=== PATIENT | female | born 1930 | race Caucasian/White ===

== ENCOUNTER 2018-03-14 11:22 | Inpatient (IN) | payer MEDICARE ==
[~2018-03-14] VITALS: Ht 165.1 cm; Wt 92.5 kg
--- NOTE | ~2018-03-14 | MORECARE ---
CASE MANAGEMENT DISCHARGE SUMMARY PATIENT: RORY JEFFERSON UNIT: [id number] ADM DATE: 03/15/18 AGE: 87 : [birth year] SEX: F ROOM/BED: D.2127 AUTHOR: GUILLERMINA,DOC PHYSICIAN: REFERRING PHYSICIAN: LORI CALDERON MD DATE OF SERVICE: 03/21/18 Discharge Plan Patient Name: RORY JEFFERSON Facility: [facility]:[place] : 1930 Planned Disposition: Half-Way Facility Anticipated Discharge Date: 03/21/18 Discharge Date: Expected LOS: 6 Initial Reviewer: [id number] Initial Review Date: 03/14/2018 Generated: 03/21/18 4:21 pm Comments DCP- Discharge Planning Updated by [id number]: Reji Neri on 03/20/18 4:[address] Patient Name: RORY JEFFERSON Encounter No: [id number] : 1930 Primary Insurance: MEDICARE A & B Anticipated DC Date: 03-21-2018 Planned Disposition: [facility] F[facility] External Planned Provider: [facility], MEDICARE REHAB BED DCP follow-up note: CM SPOKE TO KEMI OF INPATIENT REHAB 03-19-18, WHO INFORMED CM THAT PT IS TOO LOW FUNCTIONING FOR INPATIENT REHAB. ON 03-20-18, CM SPOKE TO PT IN ROOM REGARDING DISCHARGE PLANNING, INPATIENT DENIAL AND [facility] AVAILAILITY. PT WANTED TO THINK ABOUT IT AND NOTIFY CM LATER TODAY AFTER SPEAKING TO HER DAUGHTER. IMPORTANT MESSAGE FROM MEDICARE PROVIDED AND EXPLAINED. PT'S DAUGHTER ARRIVED AFTER LUNCH AND DISCUSSED REHAB WITH PT. PT SELECTED [facility] FOR REHAB, CHOICE SIGNED. CM FAXED REFERRAL TO [facility], . CM WAITING ADMISSION DETERMINATION FROM [facility] FOR REHAB SERVICES. JESS CARRASQUILLO DCP- Discharge Planning Updated by [id number]: Reji Neri on 03/15/18 2:[address] Patient Name: RORY JEFFERSON Admission Status: ER Accout number: [id number] Admission Date: 03-15-2018 : 1930 Admission Diagnosis: Attending: LORI BYRD Current LOS: 1 Anticipated DC Date: 03-16-2018 Planned Disposition: Inpatient Rehab Primary Insurance: MEDICARE A & B PLANNED EXTERNAL PROVIDER: [facility] INPATIENT REH[facility] Discharge Planning Comments: CM RECEIVED REHAB PRESCREENING ORDER. CM MET WITH PT AND DAUGHTER IN ROOM TO DISCUSS DISCHARGE PLANNING AND NEEDS.RORY JEFFERSON provided verbal consent to discuss current and ongoing needs with/in the presence of: NAYELY WYLIE. PT REPORTS LIVING AT HOME DEPENDENTLY WITH ADULT DAUGHTER. WHO ASSISTS WITH BATH AND MEDICATIONS. PT HAS STANDARD WALKER AND LIFT CHAIR WITH NO MEDICAL EQUIPMENT. PT HAS NO OUTSIDE SERVICES ASSISTING IN THE HOME. CM DISCUSSED AVAILABILITY OF HOME HEALTH, REHAB SERVICES AND MEDICAL EQUIPMENT WELL REHAB PROVIDERS, LOCATIONS AND EXPECTATIONS OF REHAB. PT WOULD LIKE TO BE CONSIDERED FOR INPATIENT REHAB AT [place]. CM DISCUSSED PT NOT HAVING THREE MIDNIGHTS ADMIT IN HOSPITAL IN LAST 30 DAYS AND IF DECLINED BY INPATIENT REHAB, PT'S INSURANCE WOULD COVER ONLY HOME HEALTH WITH PHYSICAL THERAPY AT HOME. PT'S DAUGHTER REPORTS UNDERSTANDING. PT'S DAUGHTER REPORTS SHE WILL PICK PT UP FOR DISCHARGE HOME. CM WAITING INPATIENT REHAB PRESCREENING AND ADMISSION DETERMINATION FROM [facility] INPATIENT REH[facility]. Stress Engineer: Reji Neri DCP- Discharge Planning Updated by [id number]: Vivian Ferguson on 03/14/18 1:[address] CM contacted [facility] for evaluation (for rehab) @[phone]. Contacted Kemi Taylor RN [facility], to notify of same (possible Rehab). DCPIA - Discharge Planning Initial Assessment Updated by [id number]: Reji Neri on 03/15/18 3:25 pm * Is the patient Alert and Oriented? Yes * How many steps to enter\exit or inside your home? * PCP DR. HEBERT * [facility] [address] * Preadmission Environment Home with Family * ADLs Partial Dependent * Partial ADLs (Assistance needed) Bathing Medication Management * Equipment Other Walker * Other Equipment LIFT CHAIR NO MEDICAL EQUIPMENT PROVIDER PREFERENCE * List name and contact numbers for known caregivers / representatives who currently or will assist patient after discharge: GAYLE GARDUNO DTR, * Verbal permission to speak to the caregivers and representatives has been obtained from the patient. Yes * Community resources currently utilized None * Please name any agencies selected above. NONE * Additional services required to return to the preadmission environment? Yes * Can the patient safely return to the preadmission environment? Yes * Has this patient been hospitalized within the prior 30 days at any hospital? No Coverage Notice Reviewer: [id number] Neri Notice Issued Date-Time: 03/20/2018 9:40 Notice Type: IM Discharge Notice Notice Delivered To: Patient Relationship to Patient: Checking Department Supervisor Name: Delivery Method: HAND - Hand Delivered Beronica Days: Prior Verbal Notification: Recipient Understood Notice: Yes Recipient Signature: Yes Med Rec Note Co-signed by Attending: Coverage Notice Comment: Reviewer: [id number] Jenelle Neri Notice Issued Date-Time: 03/20/2018 12:55 Notice Type: Patient Choice Letter Notice Delivered To: Patient Relationship to Patient: Checking Department Supervisor Name: Delivery Method: HAND - Hand Delivered Beronica Days: Prior Verbal Notification: Recipient Understood Notice: Yes Recipient Signature: Yes Med Rec Note Co-signed by Attending: Coverage Notice Comment: [facility] Last DP export: 03/20/18 5:00 Patient Name: RORY JEFFERSON Page [id number] at 1521 All edits/amendments must be made on the electronic document DICTATION DATE: 03/21/181519 MANUFACTURING TECHNOLOGY ANALYST: SANDRA 03/21/181519 RPT#: [id number] DC DATE: STATUS: ADM IN [facility] [address] [place] [address] END OF REPORT
--- NOTE | ~2018-03-14 | MORECARE ---
CASE MANAGEMENT DISCHARGE SUMMARY PATIENT: RORY JEFFERSON UNIT: [id number] ADM DATE: 03/15/18 AGE: 87 : [birth year] SEX: F ROOM/BED: D.2127 AUTHOR: GUILLERMINA,DOC PHYSICIAN: REFERRING PHYSICIAN: LORI CALDERON MD DATE OF SERVICE: 03/20/18 Discharge Plan Patient Name: RORY JEFFERSON Facility: [facility]:[place] : 1930 Planned Disposition: Inpatient Rehab Anticipated Discharge Date: 03/16/18 Discharge Date: Expected LOS: 1 Initial Reviewer: [id number] Initial Review Date: 03/14/2018 Generated: 03/20/18 6:35 pm Comments DCP- Discharge Planning Updated by [id number]: Reji Neri on 03/20/18 4:[address] Patient Name: RORY JEFFERSON Encounter No: [id number] : 1930 Primary Insurance: MEDICARE A & B Anticipated DC Date: 03-21-2018 Planned Disposition: [facility] FACILITY External Planned Provider: [facility], MEDICARE REHAB BED DCP follow-up note: CM SPOKE TO KEMI OF INPATIENT REHAB 03-19-18, WHO INFORMED CM THAT PT IS TOO LOW FUNCTIONING FOR INPATIENT REHAB. ON 03-20-18, CM SPOKE TO PT IN ROOM REGARDING DISCHARGE PLANNING, INPATIENT DENIAL AND [facility] AVAILAILITY. PT WANTED TO THINK ABOUT IT AND NOTIFY CM LATER TODAY AFTER SPEAKING TO HER DAUGHTER. IMPORTANT MESSAGE FROM MEDICARE PROVIDED AND EXPLAINED. PT'S DAUGHTER ARRIVED AFTER LUNCH AND DISCUSSED REHAB WITH PT. PT SELECTED [facility] FOR REHAB, CHOICE SIGNED. CM FAXED REFERRAL TO [facility], . CM WAITING ADMISSION DETERMINATION FROM [facility] FOR REHAB SERVICES. JESS CARRASQUILLO DCP- Discharge Planning Updated by [id number]: Reji Neri on 03/15/18 2:[address] Patient Name: RORY JEFFERSON Admission Status: ER Accout number: [id number] Admission Date: 03-15-2018 : 1930 Admission Diagnosis: Attending: LORI BYRD Current LOS: 1 Anticipated DC Date: 03-16-2018 Planned Disposition: Inpatient Rehab Primary Insurance: MEDICARE A & B PLANNED EXTERNAL PROVIDER: [facility] INPATIENT REH[facility] Discharge Planning Comments: CM RECEIVED REHAB PRESCREENING ORDER. CM MET WITH PT AND DAUGHTER IN ROOM TO DISCUSS DISCHARGE PLANNING AND NEEDS.RORY JEFFERSON provided verbal consent to discuss current and ongoing needs with/in the presence of: NAYELY WYLIE. PT REPORTS LIVING AT HOME DEPENDENTLY WITH ADULT DAUGHTER. WHO ASSISTS WITH BATH AND MEDICATIONS. PT HAS STANDARD WALKER AND LIFT CHAIR WITH NO MEDICAL EQUIPMENT. PT HAS NO OUTSIDE SERVICES ASSISTING IN THE HOME. CM DISCUSSED AVAILABILITY OF HOME HEALTH, REHAB SERVICES AND MEDICAL EQUIPMENT WELL REHAB PROVIDERS, LOCATIONS AND EXPECTATIONS OF REHAB. PT WOULD LIKE TO BE CONSIDERED FOR INPATIENT REHAB AT [place]. CM DISCUSSED PT NOT HAVING THREE MIDNIGHTS ADMIT IN HOSPITAL IN LAST 30 DAYS AND IF DECLINED BY INPATIENT REHAB, PT'S INSURANCE WOULD COVER ONLY HOME HEALTH WITH PHYSICAL THERAPY AT HOME. PT'S DAUGHTER REPORTS UNDERSTANDING. PT'S DAUGHTER REPORTS SHE WILL PICK PT UP FOR DISCHARGE HOME. CM WAITING INPATIENT REHAB PRESCREENING AND ADMISSION DETERMINATION FROM [facility]. Priming Powder Premix Blender: Reji Neri DCP- Discharge Planning Updated by [id number]: Vivian Ferguson on 03/14/18 1:[address] CM contacted [facility] for evaluation (for rehab) @[phone]. Contacted Kemi Taylor RN [facility] Rehab, to notify of same (possible Rehab). DCPIA - Discharge Planning Initial Assessment Updated by [id number]: Reji Neri on 03/15/18 3:25 pm * Is the patient Alert and Oriented? Yes * How many steps to enter\exit or inside your home? * PCP DR. HEBERT * [facility] [address] * Preadmission Environment Home with Family * ADLs Partial Dependent * Partial ADLs (Assistance needed) Bathing Medication Management * Equipment Other Walker * Other Equipment LIFT CHAIR NO MEDICAL EQUIPMENT PROVIDER PREFERENCE * List name and contact numbers for known caregivers / representatives who currently or will assist patient after discharge: GAYLE GARDUNO DTR, * Verbal permission to speak to the caregivers and representatives has been obtained from the patient. Yes * Community resources currently utilized None * Please name any agencies selected above. NONE * Additional services required to return to the preadmission environment? Yes * Can the patient safely return to the preadmission environment? Yes * Has this patient been hospitalized within the prior 30 days at any hospital? No Coverage Notice Reviewer: [id number] Neri Notice Issued Date-Time: 03/20/2018 9:40 Notice Type: IM Discharge Notice Notice Delivered To: Patient Relationship to Patient: Plaster Machine Operator Name: Delivery Method: HAND - Hand Delivered Beronica Days: Prior Verbal Notification: Recipient Understood Notice: Yes Recipient Signature: Yes Med Rec Note Co-signed by Attending: Coverage Notice Comment: Reviewer: [id number] Jenelle Neri Notice Issued Date-Time: 03/20/2018 12:55 Notice Type: Patient Choice Letter Notice Delivered To: Patient Relationship to Patient: Plaster Machine Operator Name: Delivery Method: HAND - Hand Delivered Beronica Days: Prior Verbal Notification: Recipient Understood Notice: Yes Recipient Signature: Yes Med Rec Note Co-signed by Attending: Coverage Notice Comment: [facility] Last DP export: 03/20/18 4:15 Patient Name: RORY JEFFERSON Page 11097 at 1735 All edits/amendments must be made on the electronic document DICTATION DATE: 03/20/181733 DUCT MAKER: SANDRA 03/20/181733 RPT#: [id number] DC DATE: STATUS: ADM IN [facility] [address] [place] [address] END OF REPORT
--- NOTE | ~2018-03-14 | MORECARE ---
CASE MANAGEMENT DISCHARGE SUMMARY PATIENT: RORY JEFFERSON UNIT: [id number] ADM DATE: 03/15/18 AGE: 87 : [birth year] SEX: F ROOM/BED: D.2127 AUTHOR: GUILLERMINA,DOC PHYSICIAN: REFERRING PHYSICIAN: LORI CALDERON MD DATE OF SERVICE: 03/21/18 Discharge Plan Patient Name: RORY JEFFERSON Facility: [facility]:[place] : 1930 Planned Disposition: Retirement Facility Anticipated Discharge Date: 03/21/18 Discharge Date: Expected LOS: 6 Initial Reviewer: [id number] Initial Review Date: 03/14/2018 Generated: 03/21/18 4:10 pm Comments DCP- Discharge Planning Updated by [id number]: Reji Neri on 03/20/18 4:[address] Patient Name: RORY JEFFERSON Encounter No: [id number] : 1930 Primary Insurance: MEDICARE A & B Anticipated DC Date: 03-21-2018 Planned Disposition[facility] F[facility] External Planned Provider: [facility], MEDICARE REHAB BED DCP follow-up note: CM SPOKE TO KEMI OF INPATIENT REHAB 03-19-18, WHO INFORMED CM THAT PT IS TOO LOW FUNCTIONING FOR INPATIENT REHAB. ON 03-20-18, CM SPOKE TO PT IN ROOM REGARDING DISCHARGE PLANNING, INPATIENT DENIAL AND [facility] AVAILAILITY. PT WANTED TO THINK ABOUT IT AND NOTIFY CM LATER TODAY AFTER SPEAKING TO HER DAUGHTER. IMPORTANT MESSAGE FROM MEDICARE PROVIDED AND EXPLAINED. PT'S DAUGHTER ARRIVED AFTER LUNCH AND DISCUSSED REHAB WITH PT. PT SELECTED [facility] FOR REHAB, CHOICE SIGNED. CM FAXED REFERRAL TO [facility], . CM WAITING ADMISSION DETERMINATION FROM [facility] FOR REHAB SERVICES. JESS CARRASQUILLO DCP- Discharge Planning Updated by [id number]: Reji Neri on 03/15/18 2:[address] Patient Name: RORY JEFFERSON Admission Status: ER Accout number: [id number] Admission Date: 03-15-2018 : 1930 Admission Diagnosis: Attending: LORI BYRD Current LOS: 1 Anticipated DC Date: 03-16-2018 Planned Disposition: Inpatient Rehab Primary Insurance: MEDICARE A & B PLANNED EXTERNAL PROVIDER: [facility] INPATIENT REH[facility] Discharge Planning Comments: CM RECEIVED REHAB PRESCREENING ORDER. CM MET WITH PT AND DAUGHTER IN ROOM TO DISCUSS DISCHARGE PLANNING AND NEEDS.RORY JEFFERSON provided verbal consent to discuss current and ongoing needs with/in the presence of: NAYELY WYLIE. PT REPORTS LIVING AT HOME DEPENDENTLY WITH ADULT DAUGHTER. WHO ASSISTS WITH BATH AND MEDICATIONS. PT HAS STANDARD WALKER AND LIFT CHAIR WITH NO MEDICAL EQUIPMENT. PT HAS NO OUTSIDE SERVICES ASSISTING IN THE HOME. CM DISCUSSED AVAILABILITY OF HOME HEALTH, REHAB SERVICES AND MEDICAL EQUIPMENT WELL REHAB PROVIDERS, LOCATIONS AND EXPECTATIONS OF REHAB. PT WOULD LIKE TO BE CONSIDERED FOR INPATIENT REHAB AT [place]. CM DISCUSSED PT NOT HAVING THREE MIDNIGHTS ADMIT IN HOSPITAL IN LAST 30 DAYS AND IF DECLINED BY INPATIENT REHAB, PT'S INSURANCE WOULD COVER ONLY HOME HEALTH WITH PHYSICAL THERAPY AT HOME. PT'S DAUGHTER REPORTS UNDERSTANDING. PT'S DAUGHTER REPORTS SHE WILL PICK PT UP FOR DISCHARGE HOME. CM WAITING INPATIENT REHAB PRESCREENING AND ADMISSION DETERMINATION FROM [facility] INPATIENT [facility]. Telegraph Service Rater: Reji Neri DCP- Discharge Planning Updated by [id number]: Vivian Ferguson on 03/14/18 1:[address] CM contacted [facility] physical therapy for evaluation (for rehab) @[phone]. Contacted Kemi Taylor RN [facility] Rehab, to notify of same (possible Rehab). DCPIA - Discharge Planning Initial Assessment Updated by [id number]: Reji Neri on 03/15/18 3:25 pm * Is the patient Alert and Oriented? Yes * How many steps to enter\exit or inside your home? * PCP DR. HEBERT * [facility] [address] * Preadmission Environment Home with Family * ADLs Partial Dependent * Partial ADLs (Assistance needed) Bathing Medication Management * Equipment Other Walker * Other Equipment LIFT CHAIR NO MEDICAL EQUIPMENT PROVIDER PREFERENCE * List name and contact numbers for known caregivers / representatives who currently or will assist patient after discharge: GAYLE GARDUNO DTR, * Verbal permission to speak to the caregivers and representatives has been obtained from the patient. Yes * Community resources currently utilized None * Please name any agencies selected above. NONE * Additional services required to return to the preadmission environment? Yes * Can the patient safely return to the preadmission environment? Yes * Has this patient been hospitalized within the prior 30 days at any hospital? No Coverage Notice Reviewer: [id number] Neri Notice Issued Date-Time: 03/20/2018 9:40 Notice Type: IM Discharge Notice Notice Delivered To: Patient Relationship to Patient: Wet Finisher Wool Name: Delivery Method: HAND - Hand Delivered Beronica Days: Prior Verbal Notification: Recipient Understood Notice: Yes Recipient Signature: Yes Med Rec Note Co-signed by Attending: Coverage Notice Comment: Reviewer: [id number] Jenelle Neri Notice Issued Date-Time: 03/20/2018 12:55 Notice Type: Patient Choice Letter Notice Delivered To: Patient Relationship to Patient: Wet Finisher Wool Name: Delivery Method: HAND - Hand Delivered Beronica Days: Prior Verbal Notification: Recipient Understood Notice: Yes Recipient Signature: Yes Med Rec Note Co-signed by Attending: Coverage Notice Comment: [facility] Last DP export: 03/20/18 5:00 Patient Name: RORY JEFFERSON Page [id number] at 1510 All edits/amendments must be made on the electronic document DICTATION DATE: 03/21/181509 PAPER FINAL INSPECTOR: SANDRA 03/21/18 1510 RPT#: [id number] DC DATE: STATUS: ADM IN [facility] [address] [place] [address] END OF REPORT
--- NOTE | ~2018-03-14 | MORECARE ---
CASE MANAGEMENT DISCHARGE SUMMARY PATIENT: RORY JEFFERSON UNIT: [id number] ADM DATE: 03/15/18 AGE: 87 : [birth year] SEX: F ROOM/BED: D.2314 AUTHOR: GUILLERMINA,DOC PHYSICIAN: REFERRING PHYSICIAN: LORI CALDERON MD DATE OF SERVICE: 03/15/18 Discharge Plan Patient Name: RORY JEFFERSON Facility: [facility]:[place] : 1930 Planned Disposition: Inpatient Rehab Anticipated Discharge Date: 03/16/18 Discharge Date: Expected LOS: 1 Initial Reviewer: [id number] Initial Review Date: 03/14/2018 Generated: 03/15/18 4:38 pm Comments DCP- Discharge Planning Updated by [id number]: Reji Neri on 03/15/18 2:[address] Patient Name: RORY JEFFERSON Admission Status: ER Accout number: [id number] Admission Date: 03-15-2018 : 1930 Admission Diagnosis: Attending: LORI BYRD Current LOS: 1 Anticipated DC Date: 03-16-2018 Planned Disposition: Inpatient Rehab Primary Insurance: MEDICARE A & B PLANNED EXTERNAL PROVIDER: [facility] INPATIENT REHAB Discharge Planning Comments: CM RECEIVED REHAB PRESCREENING ORDER. CM MET WITH PT AND DAUGHTER IN ROOM TO DISCUSS DISCHARGE PLANNING AND NEEDS.RORY JEFFERSON provided verbal consent to discuss current and ongoing needs with/in the presence of: NAYELY WYLIE. PT REPORTS LIVING AT HOME DEPENDENTLY WITH ADULT DAUGHTER. WHO ASSISTS WITH BATH AND MEDICATIONS. PT HAS STANDARD WALKER AND LIFT CHAIR WITH NO MEDICAL EQUIPMENT. PT HAS NO OUTSIDE SERVICES ASSISTING IN THE HOME. CM DISCUSSED AVAILABILITY OF HOME HEALTH, REHAB SERVICES AND MEDICAL EQUIPMENT WELL REHAB PROVIDERS, LOCATIONS AND EXPECTATIONS OF REHAB. PT WOULD LIKE TO BE CONSIDERED FOR INPATIENT REHAB AT [place]. CM DISCUSSED PT NOT HAVING THREE MIDNIGHTS ADMIT IN HOSPITAL IN LAST 30 DAYS AND IF DECLINED BY INPATIENT REHAB, PT'S INSURANCE WOULD COVER ONLY HOME HEALTH WITH PHYSICAL THERAPY AT HOME. PT'S DAUGHTER REPORTS UNDERSTANDING. PT'S DAUGHTER REPORTS SHE WILL PICK PT UP FOR DISCHARGE HOME. CM WAITING INPATIENT REHAB PRESCREENING AND ADMISSION DETERMINATION FROM [facility] INPATIENT REH[facility]. Internal Auditor: Reji Neri DCP- Discharge Planning Updated by [id number]: Vivian Ferguson on 03/14/18 1:[address] CM contacted [facility] physical therapy for evaluation (for rehab) @[phone]. Contacted Kemi Taylor RN [facility] Re[facility], to notify of same (possible Rehab). DCPIA - Discharge Planning Initial Assessment Updated by [id number]: Reji Neri on 03/15/18 3:25 pm * Is the patient Alert and Oriented? Yes * How many steps to enter\exit or inside your home? * PCP DR. HEBERT * [facility] [address] * Preadmission Environment Home with Family * ADLs Partial Dependent * Partial ADLs (Assistance needed) Bathing Medication Management * Equipment Other Walker * Other Equipment LIFT CHAIR NO MEDICAL EQUIPMENT PROVIDER PREFERENCE * List name and contact numbers for known caregivers / representatives who currently or will assist patient after discharge: GAYLE GARDUNO, DTR, * Verbal permission to speak to the caregivers and representatives has been obtained from the patient. Yes * Community resources currently utilized None * Please name any agencies selected above. NONE * Additional services required to return to the preadmission environment? Yes * Can the patient safely return to the preadmission environment? Yes * Has this patient been hospitalized within the prior 30 days at any hospital? No Last DP export: 03/15/18 2:30 Patient Name: RORY JEFFERSON Page [phone] at 1538 All edits/amendments must be made on the electronic document DICTATION DATE: 03/15/181537 MILLED RICE BROKER: SANDRA 03/15/181537 RPT#: [id number] DC DATE: STATUS: ADM IN [facility] [address] [place] [address] END OF REPORT
--- NOTE | ~2018-03-14 | MORECARE ---
CASE MANAGEMENT DISCHARGE SUMMARY PATIENT: RORY JEFFERSON UNIT: [id number] ADM DATE: 03/15/18 AGE: 87 : [birth year] SEX: F ROOM/BED: D.7567 AUTHOR: FRANSISCA SARMIENTO PHYSICIAN: REFERRING PHYSICIAN: LORI CALDERON MD DATE OF SERVICE: 03/15/18 Discharge Plan Patient Name: RORY JEFFERSON Facility: [facility]:[place] : 1930 Planned Disposition: Inpatient Rehab Anticipated Discharge Date: 03/16/18 Discharge Date: Expected LOS: 1 Initial Reviewer: [id number] Initial Review Date: 03/14/2018 Generated: 03/15/18 4:20 pm DCP- Discharge Planning Updated by [id number]: Vivian Ferguson on 03/14/18 1:[address] CM contacted [facility] therapy for evaluation (for rehab) @[phone]. Contacted Kemi Taylor RN [facility] Re[facility], to notify of same (possible Rehab). Last DP export: 03/14/18 1:14 Patient Name: RORY JEFFERSON Page [phone] at 1520 All edits/amendments must be made on the electronic document DICTATION DATE: 03/15/181518 PRIMARY GRADE TEACHER: SANDRA 03/15/181518 RPT#: [id number] DC DATE: STATUS: ADM IN [facility] [address] [place] [address] END OF REPORT
--- NOTE | ~2018-03-14 | MORECARE ---
CASE MANAGEMENT DISCHARGE SUMMARY PATIENT: RORY JEFFERSON UNIT: [id number] ADM DATE: 03/15/18 AGE: 87 : [birth year] SEX: F ROOM/BED: D.4573 AUTHOR: FRANSISCA SARMIENTO PHYSICIAN: REFERRING PHYSICIAN: LORI CALDERON MD DATE OF SERVICE: 03/15/18 Discharge Plan Patient Name: RORY JEFFERSON Facility: [facility]:[place] : 1930 Planned Disposition: Inpatient Rehab Anticipated Discharge Date: 03/16/18 Discharge Date: Expected LOS: 1 Initial Reviewer: [id number] Initial Review Date: 03/14/2018 Generated: 03/15/18 4:30 pm DCP- Discharge Planning Updated by [id number]: Vivian Ferguson on 03/14/18 1:[address] CM contacted TELETYPESETTER OPERATOR physical therapy for evaluation (for rehab) @[phone]. Contacted Kemi Taylor RN TELETYPESETTER OPERATOR Rehab, to notify of same (possible Rehab). DCPIA - Discharge Planning Initial Assessment Updated by [id number]: Reji Neri on 03/15/18 3:25 pm * Is the patient Alert and Oriented? Yes * How many steps to enter\exit or inside your home? * PCP DR. HEBERT * Pharmacy [facility] ON [facility] [address] * Preadmission Environment Home with Family * ADLs Partial Dependent * Partial ADLs (Assistance needed) Bathing Medication Management * Equipment Other Walker * Other Equipment LIFT CHAIR NO MEDICAL EQUIPMENT PROVIDER PREFERENCE * List name and contact numbers for known caregivers / representatives who currently or will assist patient after discharge: GAYLE GARDUNO DTR, * Verbal permission to speak to the caregivers and representatives has been obtained from the patient. Yes * Community resources currently utilized None * Please name any agencies selected above. NONE * Additional services required to return to the preadmission environment? Yes * Can the patient safely return to the preadmission environment? Yes * Has this patient been hospitalized within the prior 30 days at any hospital? No Last DP export: 03/15/18 2:20 Patient Name: RORY JEFFERSON Page 17889 at 1530 All edits/amendments must be made on the electronic document DICTATION DATE: 03/15/18 152 BARREL ROLLER OPERATOR: SANDRA 03/15/181528 RPT#: [id number] DC DATE: STATUS: [facility] [address] [place] [address] END OF REPORT
--- NOTE | ~2018-03-14 | MORECARE ---
CASE MANAGEMENT DISCHARGE SUMMARY PATIENT: RORY JEFFERSON UNIT: [id number] ADM DATE: 03/15/18 AGE: 87 : [birth year] SEX: F ROOM/BED: D.2127 AUTHOR: GUILLERMINA,DOC PHYSICIAN: REFERRING PHYSICIAN: LORI CALDERON MD DATE OF SERVICE: 03/20/18 Discharge Plan Patient Name: RORY JEFFERSON Facility: [facility]:[place] : 1930 Planned Disposition: Prison Facility Anticipated Discharge Date: 03/16/18 Discharge Date: Expected LOS: 1 Initial Reviewer: [id number] Initial Review Date: 03/14/2018 Generated: 03/20/18 7:00 pm Comments DCP- Discharge Planning Updated by [id number]: Reji Neri on 03/20/18 4:[address] Patient Name: RORY JEFFERSON Encounter No: [id number] : 1930 Primary Insurance: MEDICARE A & B Anticipated DC Date: 03-21-2018 Planned Disposition: ASSISTED FACILITY External Planned Provider: [facility], MEDICARE REHAB BED DCP follow-up note: CM SPOKE TO KEMI OF INPATIENT REHAB 03-19-18, WHO INFORMED CM THAT PT IS TOO LOW FUNCTIONING FOR INPATIENT REHAB. ON 03-20-18, CM SPOKE TO PT IN ROOM REGARDING DISCHARGE PLANNING, INPATIENT DENIAL AND ASSISTED AVAILAILITY. PT WANTED TO THINK ABOUT IT AND NOTIFY CM LATER TODAY AFTER SPEAKING TO HER DAUGHTER. IMPORTANT MESSAGE FROM MEDICARE PROVIDED AND EXPLAINED. PT'S DAUGHTER ARRIVED AFTER LUNCH AND DISCUSSED REHAB WITH PT. PT SELECTED [facility] FOR REHAB, CHOICE SIGNED. CM FAXED REFERRAL TO [facility], . CM WAITING ADMISSION DETERMINATION FROM [facility] FOR REHAB SERVICES. JESS CARRASQUILLO DCP- Discharge Planning Updated by [id number]: Reji Neri on 03/15/18 2:[address] Patient Name: RORY JEFFERSON Admission Status: ER Accout number: [id number] Admission Date: 03-15-2018 : 1930 Admission Diagnosis: Attending: LORI BYRD Current LOS: 1 Anticipated DC Date: 03-16-2018 Planned Disposition: Inpatient Rehab Primary Insurance: MEDICARE A & B PLANNED EXTERNAL PROVIDER: [facility] INPAT[facility] Discharge Planning Comments: CM RECEIVED REHAB PRESCREENING ORDER. CM MET WITH PT AND DAUGHTER IN ROOM TO DISCUSS DISCHARGE PLANNING AND NEEDS.RORY JEFFERSON provided verbal consent to discuss current and ongoing needs with/in the presence of: NAYELY WYLIE. PT REPORTS LIVING AT HOME DEPENDENTLY WITH ADULT DAUGHTER. WHO ASSISTS WITH BATH AND MEDICATIONS. PT HAS STANDARD WALKER AND LIFT CHAIR WITH NO MEDICAL EQUIPMENT. PT HAS NO OUTSIDE SERVICES ASSISTING IN THE HOME. CM DISCUSSED AVAILABILITY OF HOME HEALTH, REHAB SERVICES AND MEDICAL EQUIPMENT WELL REHAB PROVIDERS, LOCATIONS AND EXPECTATIONS OF REHAB. PT WOULD LIKE TO BE CONSIDERED FOR INPATIENT REHAB AT [place]. CM DISCUSSED PT NOT HAVING THREE MIDNIGHTS ADMIT IN HOSPITAL IN LAST 30 DAYS AND IF DECLINED BY INPATIENT REHAB, PT'S INSURANCE WOULD COVER ONLY HOME HEALTH WITH PHYSICAL THERAPY AT HOME. PT'S DAUGHTER REPORTS UNDERSTANDING. PT'S DAUGHTER REPORTS SHE WILL PICK PT UP FOR DISCHARGE HOME. CM WAITING INPATIENT REHAB PRESCREENING AND ADMISSION DETERMINATION FROM [facility] INPAT[facility]. Printing And Stamping Supervisor: Reji Neri DCP- Discharge Planning Updated by [id number]: Vivian Ferguson on 03/14/18 1:[address] CM contacted [facility] physical therapy for evaluation (for rehab) @[phone]. Contacted Kemi Taylor RN [facility] Rehab, to notify of same (possible Rehab). DCPIA - Discharge Planning Initial Assessment Updated by [id number]: Reji Neri on 03/15/18 3:25 pm * Is the patient Alert and Oriented? Yes * How many steps to enter\exit or inside your home? * PCP DR. HEBERT * [facility] [address] * Preadmission Environment Home with Family * ADLs Partial Dependent * Partial ADLs (Assistance needed) Bathing Medication Management * Equipment Other Walker * Other Equipment LIFT CHAIR NO MEDICAL EQUIPMENT PROVIDER PREFERENCE * List name and contact numbers for known caregivers / representatives who currently or will assist patient after discharge: GAYLE GARDUNO DTR, * Verbal permission to speak to the caregivers and representatives has been obtained from the patient. Yes * Community resources currently utilized None * Please name any agencies selected above. NONE * Additional services required to return to the preadmission environment? Yes * Can the patient safely return to the preadmission environment? Yes * Has this patient been hospitalized within the prior 30 days at any hospital? No Coverage Notice Reviewer: [id number] Neri Notice Issued Date-Time: 03/20/2018 9:40 Notice Type: IM Discharge Notice Notice Delivered To: Patient Relationship to Patient: Operational Assistant Name: Delivery Method: HAND - Hand Delivered Beronica Days: Prior Verbal Notification: Recipient Understood Notice: Yes Recipient Signature: Yes Med Rec Note Co-signed by Attending: Coverage Notice Comment: Reviewer: [id number] Jenelle Neri Notice Issued Date-Time: 03/20/2018 12:55 Notice Type: Patient Choice Letter Notice Delivered To: Patient Relationship to Patient: Operational Assistant Name: Delivery Method: HAND - Hand Delivered Beronica Days: Prior Verbal Notification: Recipient Understood Notice: Yes Recipient Signature: Yes Med Rec Note Co-signed by Attending: Coverage Notice Comment: [facility] FOR REHAB Last DP export: 03/20/18 4:35 Patient Name: RORY JEFFERSON Page 61850 at 1800 All edits/amendments must be made on the electronic document DICTATION DATE: 03/20/181758 SUPERINTENDENT CONCRETE MIXING PLANT: SANDRA 03/20/181758 RPT#: [id number] DC DATE: STATUS: ADM IN [facility] [address] [place] [address] END OF REPORT
--- NOTE | ~2018-03-14 | CN ---
PATIENT NAME:RORY JEFFERSON MEDICAL RECORD: [id number] : [birth year] LOCATION:D. D.2127 ADMIT DATE: 03/15/18 ACCOUNT: [id number] CONSULTING PHYSICIAN: KILEY GONZALES MD REFERRING PHYSICIAN: LORI CALDERON MD DATE OF CONSULTATION: 03/18/2018 HISTORY OF PRESENT ILLNESS: An 87-year-old female followed by Dr. Abad for cardiac arrhythmias and mild valvular pathology had a fall at home, was admitted with intractable pain including chest pain, had one elevated troponin. However, subsequent troponins have been entirely negative. Additionally, at the time of troponin, she was intravascularly volume depleted with a BUN of 23. We are asked to see her concerning her cardiovascular status. PAST MEDICAL HISTORY: Includes: 1. History of osteoarthritis. 2. Compression fractures. 3. Atrial fibrillation. 4. Dyslipidemia. 5. Hypothyroidism, on replacement. ALLERGIES: PENICILLIN AND SULFA. MEDICATIONS: Include Synthroid 137 mcg daily, Protonix 20 every day, aspirin 81 every day, lorazepam 0.5 mg t.i.d., tramadol 50 q.6 hours p.r.n., Namenda 7 mg p.o. every day, pravastatin 20 every day, sotalol 40 b.i.d. SOCIAL HISTORY: Nonsmoker, nondrinker. Typically needs assist doing some of her ADLs due to general debility. REVIEW OF SYSTEMS: The patient reports easy bruising but reports no swollen glands. The patient reports no fever, no night sweats, no significant weight gain, no significant weight loss. No significant exercise tolerance. The patient reports no dry eyes, no irritation, no vision change. Patient reports no difficulty hearing and no ear pain. Patient reports no frequent nose bleeds or nose and sinus problems. Patient reports on arm pain on exertion. No shortness of breath while lying down. No history of heart murmur. Patient reports no cough, no wheezing or coughing up blood. Patient reports no abdominal pain, no vomiting. Normal appetite. No diarrhea and not vomiting blood. No nausea and no constipation. Patient reports no incontinence. No difficulty urinating. No hematuria. No increased frequency. Patient reports no muscle aches. No weakness, no arthralgias, no back pain. No swelling of the extremities. Patient reports no abnormal mole, no jaundice, no rashes. Reports no loss of consciousness. No weakness and no numbness. No seizures, dizziness, or headaches. The patient reports no depression, no sleep disturbance, feeling safe in a relationship and no alcohol abuse. Patient reports on fatigue. Reports no runny nose or sinus pressure. No itching, no hives, and no frequent sneezing. PHYSICAL EXAMINATION: GENERAL: Pleasant female in no acute distress. VITAL SIGNS: Blood pressure 134/55, pulse 72 and regular. HEENT: Normocephalic, atraumatic. NECK: No JVD or bruits. HEART: Regular. II/ systolic ejection murmur. CONSULT REPORT [id number] RORY JEFFERSON LUNGS: Good air excursion. ABDOMEN: Soft, nontender. EXTREMITIES: Pulses 2+. No edema. IMPRESSION: Given curve of the troponin, doubt significant coronary event. Rhythm has been quite stable on telemetry. We will check her echocardiographic study to ensure no focal wall motion abnormality, otherwise agree with current management. TRANSINT:[id number] Voice Confirmation ID: [id number] DOCUMENT ID: [id number] KILEY GONZALES MD at 1546 CC: [id number] DICTATION DATE: 03/18/18 1140 REEL FED PRINTER: 03/18/18 1223 ADM IN [facility] [address] [place] [address]
--- NOTE | ~2018-03-14 | MORECARE ---
CASE MANAGEMENT DISCHARGE SUMMARY PATIENT: RORY JEFFERSON UNIT: [id number] ADM DATE: 03/15/18 AGE: 87 : [birth year] SEX: F ROOM/BED: D.8537 AUTHOR: GUILLERMINA,DOC PHYSICIAN: REFERRING PHYSICIAN: LORI CALDERON MD DATE OF SERVICE: 03/20/18 Discharge Plan Patient Name: RORY JEFFERSON Facility: [facility]:[place] : 1930 Planned Disposition: Inpatient Rehab Anticipated Discharge Date: 03/16/18 Discharge Date: Expected LOS: 1 Initial Reviewer: [id number] Initial Review Date: 03/14/2018 Generated: 03/20/18 6:15 pm Comments DCP- Discharge Planning Updated by [id number]: Reji Neri on 03/15/18 2:[address] Patient Name: RORY JEFFERSON Admission Status: ER Accout number: [id number] Admission Date: 03-15-2018 : 1930 Admission Diagnosis: Attending: LORI BYRD Current LOS: 1 Anticipated DC Date: 03-16-2018 Planned Disposition: Inpatient Rehab Primary Insurance: MEDICARE A & B PLANNED EXTERNAL PROVIDER: [facility] INPATIENT REHAB Discharge Planning Comments: CM RECEIVED REHAB PRESCREENING ORDER. CM MET WITH PT AND DAUGHTER IN ROOM TO DISCUSS DISCHARGE PLANNING AND NEEDS.RORY JEFFERSON provided verbal consent to discuss current and ongoing needs with/in the presence of: NAYELY WYLIE. PT REPORTS LIVING AT HOME DEPENDENTLY WITH ADULT DAUGHTER. WHO ASSISTS WITH BATH AND MEDICATIONS. PT HAS STANDARD WALKER AND LIFT CHAIR WITH NO MEDICAL EQUIPMENT. PT HAS NO OUTSIDE SERVICES ASSISTING IN THE HOME. CM DISCUSSED AVAILABILITY OF HOME HEALTH, REHAB SERVICES AND MEDICAL EQUIPMENT WELL REHAB PROVIDERS, LOCATIONS AND EXPECTATIONS OF REHAB. PT WOULD LIKE TO BE CONSIDERED FOR INPATIENT REHAB AT [place]. CM DISCUSSED PT NOT HAVING THREE MIDNIGHTS ADMIT IN HOSPITAL IN LAST 30 DAYS AND IF DECLINED BY INPATIENT REHAB, PT'S INSURANCE WOULD COVER ONLY HOME HEALTH WITH PHYSICAL THERAPY AT HOME. PT'S DAUGHTER REPORTS UNDERSTANDING. PT'S DAUGHTER REPORTS SHE WILL PICK PT UP FOR DISCHARGE HOME. CM WAITING INPATIENT REHAB PRESCREENING AND ADMISSION DETERMINATION FROM [facility] INPAT[facility]. Pier Worker: Reji Neri DCP- Discharge Planning Updated by [id number]: Vivian Ferguson on 03/14/18 1:[address] CM contacted OPERATIONS RESEARCH DIRECTOR physical therapy for evaluation (for rehab) @[phone]. Contacted Kemi Taylor RN OPERATIONS RESEARCH DIRECTOR Rehab, to notify of same (possible Rehab). DCPIA - Discharge Planning Initial Assessment Updated by [id number]: Reji Neri on 03/15/18 3:25 pm * Is the patient Alert and Oriented? Yes * How many steps to enter\exit or inside your home? * PCP DR. HEBERT * [facility] [address] [place] * Preadmission Environment Home with Family * ADLs Partial Dependent * Partial ADLs (Assistance needed) Bathing Medication Management * Equipment Other Walker * Other Equipment LIFT CHAIR NO MEDICAL EQUIPMENT PROVIDER PREFERENCE * List name and contact numbers for known caregivers / representatives who currently or will assist patient after discharge: GAYLE GARDUNO, DTR, * Verbal permission to speak to the caregivers and representatives has been obtained from the patient. Yes * Community resources currently utilized None * Please name any agencies selected above. NONE * Additional services required to return to the preadmission environment? Yes * Can the patient safely return to the preadmission environment? Yes * Has this patient been hospitalized within the prior 30 days at any hospital? No External Providers External Provider: [facility] Next Contact Date: 03/21/2018 Service Request Date: Service Type: Resolution: Reviewer: Comments: Last DP export: 03/15/18 2:38 Patient Name: RORY JEFFERSON Page 41875 at 1715 All edits/amendments must be made on the electronic document DICTATION DATE: 03/20/181713 STORE OPERATIONS ASSOCIATE: SANDRA 03/20/181713 RPT#: [id number] MA DATE: STATUS: ADM IN [facility] [address] [place] [address] END OF REPORT
--- NOTE | ~2018-03-14 | MORECARE ---
CASE MANAGEMENT DISCHARGE SUMMARY PATIENT: RORY JEFFERSON UNIT: [id number] ADM DATE: 03/15/18 AGE: 87 : [birth year] SEX: F ROOM/BED: D.6280 AUTHOR: GUILLERMINA,DOC PHYSICIAN: REFERRING PHYSICIAN: LORI CALDERON MD DATE OF SERVICE: 03/21/18 Discharge Plan Patient Name: RORY JEFFERSON Facility: [facility]:[place] : 1930 Planned Disposition: Senior Living Facility Anticipated Discharge Date: 03/21/18 Discharge Date: Expected LOS: 6 Initial Reviewer: [email or web address] Initial Review Date: 03/14/2018 Generated: 03/21/18 4:32 pm Comments DCP- Discharge Planning Updated by [id number]: Kayode Bullard on 03/21/18 2:[address] Patient Name: RORY JEFFERSON Encounter No: [id number] : 1930 Primary Insurance: MEDICARE A & B Anticipated DC Date: 03-21-2018 Planned Disposition: Senior Living Facility External Planned Provider: [facility], MEDICARE REHAB BED DCP follow-up note: CM RECEIVED CALL FROM [facility], THEY WILL ACCEPT TODAY FOR REHAB. CM SPOKE TO PT AND DAUGHTER IN ROOM, BOTH IN AGREEMENT WITH REHAB TODAY AT [facility]. CM NOTIFIED ASHISH MIRANDA AND FINANCIAL AID ADVISOR NURSE. DISCHARGE ORDERS RECEIVED. CM FAXED DISCHARGE INFORMATION TO [facility] AT [phone]. NURSE REPORT TO BE CALLED TO [facility] AT [phone]. [facility] TO ARRANGE VAN TRANSPORTATION FOR ABOUT 4PM TODAY. BEDSIDE NURSE NOTIFIED. Kayode Bullard, CASE MANAGEMENT DCP- Discharge Planning Updated by [id number]: Kayode Bullard on 03/20/18 4:[address] Patient Name: RORY JEFFERSON Encounter No: [id number] : 1930 Primary Insurance: MEDICARE A & B Anticipated DC Date: 03-21-2018 Planned Disposition: [facility] FACILITY External Planned Provider: [facility], MEDICARE REHAB BED DCP follow-up note: CM SPOKE TO TIFFANY OF INPATIENT REHAB 03-19-18, WHO INFORMED CM THAT PT IS TOO LOW FUNCTIONING FOR INPATIENT REHAB. ON 03-20-18, CM SPOKE TO PT IN ROOM REGARDING DISCHARGE PLANNING, INPATIENT DENIAL AND [facility] AVAILAILITY. PT WANTED TO THINK ABOUT IT AND NOTIFY CM LATER TODAY AFTER SPEAKING TO HER DAUGHTER. IMPORTANT MESSAGE FROM MEDICARE PROVIDED AND EXPLAINED. PT'S DAUGHTER ARRIVED AFTER LUNCH AND DISCUSSED REHAB WITH PT. PT SELECTED [facility] FOR REHAB, CHOICE SIGNED. CM FAXED REFERRAL TO [facility], . CM WAITING ADMISSION DETERMINATION FROM [facility] FOR REHAB SERVICES. KAYODE BULLARD, CASE MANAGEMENT DCP- Discharge Planning Updated by [id number]: Kayode Bullard on 03/15/18 2:[address] Patient Name: RORY JEFFERSON Admission Status: ER Accout number: [id number] Admission Date: 03-15-2018 : 1930 Admission Diagnosis: Attending: LORI BYRD Current LOS: 1 Anticipated DC Date: 03-16-2018 Planned Disposition: Inpatient Rehab Primary Insurance: MEDICARE A & B PLANNED EXTERNAL PROVIDER: [facility] INPATIENT RE[facility] Discharge Planning Comments: CM RECEIVED REHAB PRESCREENING ORDER. CM MET WITH PT AND DAUGHTER IN ROOM TO DISCUSS DISCHARGE PLANNING AND NEEDS.RORY JEFFERSON provided verbal consent to discuss current and ongoing needs with/in the presence of: NAYELY WYLIE. PT REPORTS LIVING AT HOME DEPENDENTLY WITH ADULT DAUGHTER. WHO ASSISTS WITH BATH AND MEDICATIONS. PT HAS STANDARD WALKER AND LIFT CHAIR WITH NO MEDICAL EQUIPMENT. PT HAS NO OUTSIDE SERVICES ASSISTING IN THE HOME. CM DISCUSSED AVAILABILITY OF HOME HEALTH, REHAB SERVICES AND MEDICAL EQUIPMENT WELL REHAB PROVIDERS, LOCATIONS AND EXPECTATIONS OF REHAB. PT WOULD LIKE TO BE CONSIDERED FOR INPATIENT REHAB AT [place]. CM DISCUSSED PT NOT HAVING THREE MIDNIGHTS ADMIT IN HOSPITAL IN LAST 30 DAYS AND IF DECLINED BY INPATIENT REHAB, PT'S INSURANCE WOULD COVER ONLY HOME HEALTH WITH PHYSICAL THERAPY AT HOME. PT'S DAUGHTER REPORTS UNDERSTANDING. PT'S DAUGHTER REPORTS SHE WILL PICK PT UP FOR DISCHARGE HOME. CM WAITING INPATIENT REHAB PRESCREENING AND ADMISSION DETERMINATION FROM [facility] INPATIENT REH[facility]. Chief Administrative Officer: Kayode Bullard DCP- Discharge Planning Updated by [id number]: Vivian Ferguson on 03/14/18 1:[address] CM contacted CATALYTIC CONVERTER OPERATOR physical therapy for evaluation (for rehab) @[phone]. Contacted Tiffany Taylor RN CATALYTIC CONVERTER OPERATOR Rehab, to notify of same (possible Rehab). DCPIA - Discharge Planning Initial Assessment Updated by [id number]: Kayode Bullard on 03/15/18 3:25 pm * Is the patient Alert and Oriented? Yes * How many steps to enter\exit or inside your home? * PCP DR. HEBERT * Pharmacy [facility] [address] * Preadmission Environment Home with Family * ADLs Partial Dependent * Partial ADLs (Assistance needed) Bathing Medication Management * Equipment Other Walker * Other Equipment LIFT CHAIR NO MEDICAL EQUIPMENT PROVIDER PREFERENCE * List name and contact numbers for known caregivers / representatives who currently or will assist patient after discharge: GAYLE GARDUNO DTMadi, * Verbal permission to speak to the caregivers and representatives has been obtained from the patient. Yes * Community resources currently utilized None * Please name any agencies selected above. NONE * Additional services required to return to the preadmission environment? Yes * Can the patient safely return to the preadmission environment? Yes * Has this patient been hospitalized within the prior 30 days at any hospital? No Coverage Notice Reviewer: [id number] Bullard Notice Issued Date-Time: 03/20/2018 9:40 Notice Type: IM Discharge Notice Notice Delivered To: Patient Relationship to Patient: Orthopedic Rn Name: Delivery Method: HAND - Hand Delivered Beronica Days: Prior Verbal Notification: Recipient Understood Notice: Yes Recipient Signature: Yes Med Rec Note Co-signed by Attending: Coverage Notice Comment: Reviewer: [id number] Jenelle Bullard Notice Issued Date-Time: 03/20/2018 12:55 Notice Type: Patient Choice Letter Notice Delivered To: Patient Relationship to Patient: Orthopedic Rn Name: Delivery Method: HAND - Hand Delivered Beronica Days: Prior Verbal Notification: Recipient Understood Notice: Yes Recipient Signature: Yes Med Rec Note Co-signed by Attending: Coverage Notice Comment: [facility] REH[facility] Last DP export: 03/21/18 2:21 Patient Name: RORY JEFFERSON Page 99010 at 1532 All edits/amendments must be made on the electronic document DICTATION DATE: 03/21/181531 DESKTOP SUPPORT MANAGER: SANDRA 03/21/18 153 RPT#: [id number] DC DATE: STATUS: ADM IN [facility] [address] [place] [address] END OF REPORT
--- NOTE | ~2018-03-14 | EC ---
PATIENT:RORY JEFFERSON DATE OF SERVICE: 03/15/18 SEX: F MEDICAL RECORD: [id number] DATE OF : [birth year] LOCATION:D. D.212 AGE OF PATIENT: 87 ADMISSION DATE: 03/15/18 REFERRING PHYSICIAN: INTERPRETING PHYSICIAN: KILEY GONZALES MD ECHOCARDIOGRAM REPORT ECHO CHARGES 4 ECHO COMPLETE Date: 03/18/18 CLINICAL DIAGNOSIS: SYNCOPE ECHOCARDIOGRAPHIC MEASUREMENTS (adult normal given) AC root (d.<3.7cm) 2.9 cm LV Septum d (<1.2 cm> 1.2 cm Valve Excursion 1.5 cm LV Septum (systole) 1.3 cm Left Atria (s.<4.0cm> 3.3 cm LVPW d(<1.2cm) 1.3 cm RV (d.<2.3cm) 3.1 cm LVPW (sytole) 1.6 cm LV diastole(<5.6CM) 4.3 cm MV E-F(>70mm/sec) cm LV systole 3.1 cm LVOT Diameter 1.7 cm MV exc.(>10mm) 1.6 cm Est.ejection fraction (50-75%) % DOPPLER: LVIT cm/sec A 90.0 cm/sec E 83.0 cm/sec LA cm/sec RVSP 55 mmHg LVOT 87 cm/sec AOP1/2T m/s Asc. Ao 105 cm/sec RVOT 64 cm/sec RA cm/sec PA 128 cm/sec AV Gradient Peak 4.39 mmHg AV Mean 2.25 mmHg AV Area 2.0 cm MV Gradient Peak 4.92 mmHg MV Mean 2.06 mmHg MV Area cm COMMENTS: Turn Sewer: 2 [employer] Vulcanizer: 3 Dr. Morrissey TAPE# PACS Pericardial Effusion N DATE OF SERVICE: Adequate 2D, color flow, spectral Doppler, and M-Mode. Borderline LVH. LV internal dimensions are normal. Wall motion is normal. EF is greater than or equal to 55%. Aortic valve is tricuspid. No evidence of stenosis by Doppler interrogation. Left atrium is normal. Mitral valve shows no prolapse. Trace MR. Right-sided chambers grossly normal. Mild TR. TRANSINT:[id number] Voice Confirmation ID: [id number] DOCUMENT ID: [id number] ECHOCARDIOGRAM REPORT [id number] RONNYRORY Jimenez GREGORY A MD at 1546 CC: [id number] DICTATION DATE: 03/19/18 1012 COLD MILL INSPECTOR: 03/19/18 1052 ADM IN [place] [id number] [place] [address]
--- NOTE | ~2018-03-14 | MORECARE ---
CASE MANAGEMENT DISCHARGE SUMMARY PATIENT: RORY JEFFERSON UNIT: [id number] ADM DATE: AGE: 87 : [birth year] SEX: F ROOM/BED: AUTHOR: FRANSISCA SARMIENTO PHYSICIAN: REFERRING PHYSICIAN: DEBO PHAM MD DATE OF SERVICE: 03/14/18 Discharge Plan Patient Name: RORY JEFFERSON Facility: [facility]:[place] : 1930 Planned Disposition: Anticipated Discharge Date: Discharge Date: Expected LOS: 0 Initial Reviewer: [email or web address] Initial Review Date: 03/14/2018 Generated: 03/14/18 3:14 pm Comments DCP- Discharge Planning Updated by [email or web address]: Vivian Ferguson on 03/14/18 1:[address] CM contacted [facility] for evaluation (for rehab) @[phone]. Contacted Kemi Taylor RN [facility], to notify of same (possible Rehab). Patient Name: RORY JEFFERSON Page [phone] at 1414 All edits/amendments must be made on the electronic document DICTATION DATE: 03/14/181412 [employer] SUPERVISOR: SANDRA 03/14/181412 RPT#: [id number] DC DATE: STATUS: REG [facility] [address] [place] [address] END OF REPORT
[2018-03-14 12:23] LABS: BASOPHILS 0.1 % (0-2); EOSINOPHILS 0.6 % (0-7); HEMATOCRIT 41.5 % (36.0-48.0); HEMOGLOBIN 13.8 g/dL (12-16); IMMATURE GRANULOCYTES 0.3 % (0-5); LYMPHOCYTES 10.2 % (15-50); MCH 32.8 pg (26.0-34.0); MCHC 33.3 g/dL (31.0-37.0); MCV 98.6 fL (80.0-100.0); MEAN PLATELET VOLUME 10.6 fL (7.4-10.4); MONOCYTES 7.8 % (2-11); PLATELET COUNT 187 10x3/uL (130-400); RBC 4.21 10x6/uL (4.00-5.40); RDW 12.8 % (11.5-14.5); WBC 11.5 10x3/uL (4.8-10.8)
[2018-03-14 12:38] LABS: ALBUMIN 3.1 g/dL (3.4-5.0); ANION GAP 13.4 mmol/L (8-16); BILIRUBIN - TOTAL 0.86 mg/dL (0.2-1.3); CALCIUM 8.2 mg/dL (8.5-10.1); CARBON DIOXIDE 29.4 mmol/L (21.0-32.0); CREATININE - SERUM 0.8 mg/dL (0.6-1.3); POTASSIUM - SERUM 3.8 mmol/L (3.5-5.1); PROTEIN - SERUM 7.2 g/dL (6.4-8.2)
[2018-03-14] MEDS ORDERED: BETAPACE 80 MG80 MG PO ×2 (15:20→15:21)
[2018-03-14] MEDS ORDERED: OMEPRAZOLE40 MG PO (15:21)
[2018-03-14] MEDS ORDERED: NAMENDA5 MG PO (15:21)
[2018-03-14] MEDS ORDERED: PRAVACHOL20 MG PO (15:22)
[2018-03-14] MEDS ORDERED: ULTRAM50 MG PO (15:22)
[2018-03-14] MEDS ORDERED: ATIVAN0.5 MG PO (15:22)
[2018-03-14] MEDS ORDERED: CYCLOBENZAPRINE5 MG PO (15:23)
[2018-03-14] MEDS ORDERED: LOW DOSE ASPIRI81 M1 PO (15:23)
[2018-03-14] MEDS ORDERED: TIROSINT137 MCG PO (15:23)
[2018-03-14] MEDS ORDERED: CALCIUM 600 +1 EAC3 PO (15:23)
[2018-03-14 15:57] LABS: APPEARANCE CLEAR (CLEAR); BILIRUBIN NEGATIVE (NEGATIVE); COLOR YELLOW (YELLOW); GLUCOSE NEGATIVE (NEGATIVE); KETONE SMALL mg/dL (NEGATIVE); NITRITE NEGATIVE (NEGATIVE); PROTEIN NEGATIVE (NEGATIVE); UROBILINOGEN NORMAL (NORMAL)
[2018-03-14 20:00] VITALS: BP 167/85
[2018-03-15] VITALS (7 sets, daily range): BP systolic 116–165; BP diastolic 56–89; BMI 31.8; BMI 32.4
[2018-03-15 05:14] LABS: BASOPHILS 0.1 % (0-2); EOSINOPHILS 1.4 % (0-7); HEMOGLOBIN 13.5 g/dL (12-16); IMMATURE GRANULOCYTES 0.3 % (0-5); LYMPHOCYTES 11.5 % (15-50); MCH 32.8 pg (26.0-34.0); MCHC 32.9 g/dL (31.0-37.0); MCV 99.8 fL (80.0-100.0); MEAN PLATELET VOLUME 10.7 fL (7.4-10.4); MONOCYTES 8.1 % (2-11); NEUTROPHILS 78.6 % (40-80); PLATELET COUNT 164 10x3/uL (130-400); RBC 4.11 10x6/uL (4.00-5.40); RDW 13.1 % (11.5-14.5); WBC 9.2 10x3/uL (4.8-10.8)
[2018-03-15 06:03] LABS: ALBUMIN 2.9 g/dL (3.4-5.0); ANION GAP 13.7 mmol/L (8-16); BILIRUBIN - TOTAL 0.72 mg/dL (0.2-1.3); CALCIUM 8.4 mg/dL (8.5-10.1); CARBON DIOXIDE 29.5 mmol/L (21.0-32.0); CREATININE - SERUM 0.9 mg/dL (0.6-1.3); POTASSIUM - SERUM 4.2 mmol/L (3.5-5.1); PROTEIN - SERUM 6.9 g/dL (6.4-8.2)
[2018-03-15 16:14] LABS: CKMB 1.2 U/L (0.0-3.6); CREATINE KINASE 74 UL (21-215)
[2018-03-15 16:18] LABS: TROPONIN-I 0.076 ng/mL (0.000-0.060)
[2018-03-15 22:26] LABS: CREATINE KINASE 70 UL (21-215)
[2018-03-15 22:27] LABS: TROPONIN-I 0.065 ng/mL (0.000-0.060)
[2018-03-16] VITALS: BP 99/42
[2018-03-16 04:00] VITALS: BP 162/77
[2018-03-16 06:37] LABS: BASOPHILS 0.2 % (0-2); EOSINOPHILS 3.6 % (0-7); HEMATOCRIT 38.6 % (36.0-48.0); HEMOGLOBIN 12.6 g/dL (12-16); IMMATURE GRANULOCYTES 0.4 % (0-5); LYMPHOCYTES 10.6 % (15-50); MCH 32.6 pg (26.0-34.0); MCHC 32.6 g/dL (31.0-37.0); MEAN PLATELET VOLUME 10.6 fL (7.4-10.4); NEUTROPHILS 76.2 % (40-80); PLATELET COUNT 147 10x3/uL (130-400); RBC 3.86 10x6/uL (4.00-5.40); RDW 13.1 % (11.5-14.5); WBC 11.3 10x3/uL (4.8-10.8)
[2018-03-16 07:27] LABS: ALBUMIN 2.7 g/dL (3.4-5.0); ALKALINE PHOSPHATASE 78 U/L (46-116); ALT (SGPT) 25 U/L (10-68); BILIRUBIN - TOTAL 0.68 mg/dL (0.2-1.3); CALC OSMOLALITY 279 mosm/kg (275-300); CALCIUM 7.9 mg/dL (8.5-10.1); CARBON DIOXIDE 31.4 mmol/L (21.0-32.0); CHLORIDE - SERUM 100 mmol/L (98-107); CKMB 0.8 U/L (0.0-3.6); CREATINE KINASE 50 UL (21-215); CREATININE - SERUM 0.7 mg/dL (0.6-1.3); GLUCOSE 97 mg/dL (74-106); POTASSIUM - SERUM 3.9 mmol/L (3.5-5.1); PROTEIN - SERUM 6.3 g/dL (6.4-8.2); SODIUM 140 mmol/L (136-145); TROPONIN-I 0.028 ng/mL (0.000-0.060); UREA NITROGEN 15 mg/dL (7-18); eGFR NON AFRICAN AMERICAN 84 mL/min (90-120)
[2018-03-16 18:20] VITALS: BP 120/78
[2018-03-16 20:00] VITALS: BP 190/90
[2018-03-17] VITALS: BP 148/64
[2018-03-17 04:00] VITALS: BP 131/56
[2018-03-17 05:46] LABS: BASOPHILS 0.3 % (0-2); HEMATOCRIT 38.6 % (36.0-48.0); HEMOGLOBIN 12.5 g/dL (12-16); IMMATURE GRANULOCYTES 0.3 % (0-5); LYMPHOCYTES 15.2 % (15-50); MCH 32.2 pg (26.0-34.0); MCHC 32.4 g/dL (31.0-37.0); MCV 99.5 fL (80.0-100.0); MEAN PLATELET VOLUME 10.6 fL (7.4-10.4); MONOCYTES 11.7 % (2-11); NEUTROPHILS 67.5 % (40-80); PLATELET COUNT 161 10x3/uL (130-400); RBC 3.88 10x6/uL (4.00-5.40); RDW 12.9 % (11.5-14.5)
[2018-03-17 05:48] LABS: WBC 7.9 10x3/uL (4.8-10.8)
[2018-03-17 06:01] LABS: ALBUMIN 2.4 g/dL (3.4-5.0); ALKALINE PHOSPHATASE 79 U/L (46-116); ALT (SGPT) 21 U/L (10-68); BILIRUBIN - TOTAL 0.67 mg/dL (0.2-1.3); CALC OSMOLALITY 278 mosm/kg (275-300); CALCIUM 8.1 mg/dL (8.5-10.1); CARBON DIOXIDE 31.3 mmol/L (21.0-32.0); CHLORIDE - SERUM 102 mmol/L (98-107); CREATININE - SERUM 0.7 mg/dL (0.6-1.3); GLUCOSE 103 mg/dL (74-106); POTASSIUM - SERUM 3.7 mmol/L (3.5-5.1); PROTEIN - SERUM 6.4 g/dL (6.4-8.2); SODIUM 139 mmol/L (136-145); UREA NITROGEN 15 mg/dL (7-18); eGFR NON AFRICAN AMERICAN 84 mL/min (90-120)
[2018-03-17 08:46] VITALS: BP 144/81
[2018-03-17 14:51] VITALS: BP 139/79
[2018-03-17 17:52] VITALS: BP 144/90
[2018-03-17 20:30] VITALS: BP 174/79
[2018-03-18 00:30] VITALS: BP 133/70
[2018-03-18 04:30] VITALS: BP 152/61
[2018-03-18 05:34] LABS: BASOPHILS 0.2 % (0-2); HEMATOCRIT 34.7 % (36.0-48.0); HEMOGLOBIN 11.3 g/dL (12-16); IMMATURE GRANULOCYTES 0.5 % (0-5); LYMPHOCYTES 19.5 % (15-50); MCH 32.4 pg (26.0-34.0); MCHC 32.6 g/dL (31.0-37.0); MCV 99.4 fL (80.0-100.0); MEAN PLATELET VOLUME 10.4 fL (7.4-10.4); MONOCYTES 14.8 % (2-11); PLATELET COUNT 176 10x3/uL (130-400); RBC 3.49 10x6/uL (4.00-5.40); RDW 12.9 % (11.5-14.5); WBC 6.1 10x3/uL (4.8-10.8)
[2018-03-18 05:50] LABS: ALKALINE PHOSPHATASE 68 U/L (46-116); ALT (SGPT) 23 U/L (10-68); BILIRUBIN - TOTAL 0.48 mg/dL (0.2-1.3); CALC OSMOLALITY 280 mosm/kg (275-300); CALCIUM 7.4 mg/dL (8.5-10.1); CHLORIDE - SERUM 104 mmol/L (98-107); CREATININE - SERUM 0.6 mg/dL (0.6-1.3); GLUCOSE 97 mg/dL (74-106); POTASSIUM - SERUM 3.7 mmol/L (3.5-5.1); PROTEIN - SERUM 5.6 g/dL (6.4-8.2); SODIUM 140 mmol/L (136-145); UREA NITROGEN 17 mg/dL (7-18); eGFR NON AFRICAN AMERICAN > 90 mL/min (90-120)
[2018-03-18 09:32] VITALS: BP 130/55
[2018-03-18 13:17] VITALS: BP 140/65
[2018-03-18] MEDS ORDERED: BETAPACE 80 MG80 MG PO (15:27)
[2018-03-18 17:22] VITALS: BP 165/83
[2018-03-18 20:30] VITALS: BP 184/92
[2018-03-19 00:30] VITALS: BP 173/79
[2018-03-19 04:30] VITALS: BP 174/73
[2018-03-19 06:08] LABS: BASOPHILS 0.5 % (0-2); EOSINOPHILS 6.2 % (0-7); HEMATOCRIT 36.1 % (36.0-48.0); HEMOGLOBIN 11.8 g/dL (12-16); IMMATURE GRANULOCYTES 0.7 % (0-5); LYMPHOCYTES 18.4 % (15-50); MCH 32.5 pg (26.0-34.0); MCHC 32.7 g/dL (31.0-37.0); MCV 99.4 fL (80.0-100.0); MEAN PLATELET VOLUME 10.3 fL (7.4-10.4); MONOCYTES 15.4 % (2-11); NEUTROPHILS 58.8 % (40-80); PLATELET COUNT 186 10x3/uL (130-400); RBC 3.63 10x6/uL (4.00-5.40); RDW 12.9 % (11.5-14.5)
[2018-03-19 06:30] LABS: ALBUMIN 2.1 g/dL (3.4-5.0); ALKALINE PHOSPHATASE 74 U/L (46-116); ALT (SGPT) 27 U/L (10-68); BILIRUBIN - TOTAL 0.41 mg/dL (0.2-1.3); CALC OSMOLALITY 278 mosm/kg (275-300); CALCIUM 7.7 mg/dL (8.5-10.1); CARBON DIOXIDE 27.8 mmol/L (21.0-32.0); CHLORIDE - SERUM 103 mmol/L (98-107); CREATININE - SERUM 0.7 mg/dL (0.6-1.3); GLUCOSE 88 mg/dL (74-106); POTASSIUM - SERUM 3.7 mmol/L (3.5-5.1); PROTEIN - SERUM 5.8 g/dL (6.4-8.2); SODIUM 140 mmol/L (136-145); UREA NITROGEN 14 mg/dL (7-18); eGFR NON AFRICAN AMERICAN 84 mL/min (90-120)
[2018-03-19 08:33] VITALS: BP 185/86
[2018-03-19 12:03] VITALS: BP 147/81
[2018-03-19 16:16] VITALS: BP 151/88
[2018-03-19 20:00] VITALS: BP 156/90
[2018-03-19 21:46] VITALS: Ht 165.1 cm; Wt 92.5 kg
[2018-03-20] VITALS: BP 160/95
[2018-03-20 04:00] VITALS: BP 154/90
[2018-03-20 05:31] LABS: BASOPHILS 0.3 % (0-2); EOSINOPHILS 5.5 % (0-7); HEMATOCRIT 35.7 % (36.0-48.0); HEMOGLOBIN 12.1 g/dL (12-16); IMMATURE GRANULOCYTES 0.7 % (0-5); LYMPHOCYTES 18.1 % (15-50); MCHC 33.9 g/dL (31.0-37.0); MEAN PLATELET VOLUME 9.8 fL (7.4-10.4); MONOCYTES 12.7 % (2-11); NEUTROPHILS 62.7 % (40-80); PLATELET COUNT 207 10x3/uL (130-400); RBC 3.67 10x6/uL (4.00-5.40); RDW 12.8 % (11.5-14.5); WBC 6.9 10x3/uL (4.8-10.8)
[2018-03-20 05:55] LABS: ALBUMIN 2.1 g/dL (3.4-5.0); ALKALINE PHOSPHATASE 81 U/L (46-116); BILIRUBIN - TOTAL 0.56 mg/dL (0.2-1.3); CALC OSMOLALITY 275 mosm/kg (275-300); CALCIUM 7.6 mg/dL (8.5-10.1); CARBON DIOXIDE 25.3 mmol/L (21.0-32.0); CHLORIDE - SERUM 103 mmol/L (98-107); CREATININE - SERUM 0.6 mg/dL (0.6-1.3); GLUCOSE 94 mg/dL (74-106); POTASSIUM - SERUM 3.6 mmol/L (3.5-5.1); SODIUM 138 mmol/L (136-145); UREA NITROGEN 13 mg/dL (7-18); eGFR NON AFRICAN AMERICAN > 90 mL/min (90-120)
[2018-03-20 05:57] LABS: ALT (SGPT) 34 U/L (10-68)
[2018-03-20 06:25] LABS: MCV 97.3 fL (80.0-100.0)
[2018-03-20 08:30] VITALS: BP 197/106
[2018-03-20 12:08] VITALS: BP 172/102
[2018-03-20 16:08] VITALS: BP 195/87
[2018-03-20 21:02] VITALS: BP 176/82
[2018-03-21 01:14] VITALS: BP 175/83
[2018-03-21 05:54] VITALS: BP 205/108
[2018-03-21 08:25] VITALS: BP 196/100
[2018-03-21 12:15] VITALS: BP 173/85
[2018-03-21] MEDS ORDERED: VALTREX500 MG PO (14:11)
[2018-03-21] MEDS ORDERED: PRINIVIL20 MG PO (14:11)
== END 2018-03-21 16:22 | DRG 884 ==
LOC: EDBD 11:22 → D.ER 11:22 → D.EDHOLD 16:12 → OBSVTIME 16:14 → D.M2 19:39
PROVIDERS: Family Medicine; Family Medicine Adult Medicine
DX: R54 Age-related physical debility (principal); I24.8 Other forms of acute ischemic heart disease; W19.XXXA Unspecified fall, initial encounter; M54.10 Radiculopathy, site unspecified; M25.512 Pain in left shoulder; E03.9 Hypothyroidism, unspecified; R26.89 Other abnormalities of gait and mobility; I10 Essential (primary) hypertension; D53.9 Nutritional anemia, unspecified; B00.9 Herpesviral infection, unspecified; K44.9 Diaphragmatic hernia without obstruction or gangrene